=== PATIENT | female | born 1950 | race African-American/Black ===

== ENCOUNTER 2016-07-11 12:40 | Inpatient (IN) | payer MEDICARE, MEDICAID ==
[~2016-07-11] VITALS: Ht 165.1 cm; Wt 87.4 kg
[2016-07-11] MEDS ORDERED: DSS100 PO (13:07)
[2016-07-11] MEDS ORDERED: ASPI81 PO (13:07)
[2016-07-11] MEDS ORDERED: DIPH25 PO (13:07)
[2016-07-11] MEDS ORDERED: ATOR20TA86 PO (13:07)
[2016-07-11] MEDS ORDERED: LEVO100 PO (13:07)
[2016-07-11] MEDS ORDERED: METO50 PO (13:07)
[2016-07-11] MEDS ORDERED: LISI-661 PO (13:07)
[2016-07-11 13:29] LABS: HEMATOCRIT 38.2 % (36-46); HEMOGLOBIN 12.4 g/dL (12.0-16.0); MEAN CORPUSCULAR HEMOGLOBIN 28.9 pg (26.0-34.0); MEAN CORPUSCULAR HGB CONC 32.4 G/dL (31.0-37.0); MEAN CORPUSCULAR VOLUME 89 fL (80-100); RED BLOOD CELL COUNT(AUTO) 4.28 MIL/uL (4.00-5.20); RED CELL DISTRIBUTION WIDTH 14.6 % (11.5-14.5)
[2016-07-11 13:30] LABS: BASOPHILS % (AUTO) 1.4 % (0.0-2.0); EOSINOPHILS % (AUTO) 0.7 % (1.0-6.0); LYMPHOCYTES # (AUTO) 3.2 K/uL (1.0-4.8); LYMPHOCYTES % (AUTO) 44.9 % (22.0-44.0); MONOCYTES # (AUTO) 0.4 K/uL (0.1-1.0); MONOCYTES % (AUTO) 6.2 % (2.0-9.0); NEUTROPHILS # (AUTO) 3.3 K/uL (1.8-7.7); NEUTROPHILS % (AUTO) 46.8 % (40.0-70.0); PLATELET COUNT (AUTO) 330 K/uL (150-450)
[2016-07-11 13:54] LABS: ANION GAP 10 mmol/L (8-16); CALCIUM, TOTAL 10.1 mg/dL (8.8-10.5); CARBON DIOXIDE 29 mmol/L (22-29); CHLORIDE 104 mmol/L (98-107); CREATININE 0.98 mg/dL (0.60-1.30); GLOMERULAR FILTR. RATE CALC > 60 mL/min (>60); POTASSIUM 3.9 mmol/L (3.5-5.1); SODIUM SERUM 143 mmol/L (136-145); UREA NITROGEN, BLOOD 15 mg/dL (7-18)
[2016-07-11 13:59] LABS: ALANINE AMINOTRANSFERASE 28 U/L (12-78); ALBUMIN 3.7 g/dL (3.4-5.0); ASPARTATE AMINOTRANSFERASE 24 U/L (15-37); BILIRUBIN,TOTAL 0.4 mg/dL (0.1-1.0); TOTAL PROTEIN, SERUM 8.5 g/dL (6.4-8.2)
[2016-07-11] MEDS ORDERED: LORazepam 2 MG TABLET PO PRN (16:00)
[2016-07-11] MEDS ORDERED: HALOPERIDOL 5 MG TABLET PO PRN (16:00)
[2016-07-11] MEDS ORDERED: ZOLPIDEM TARTRATE 10 MG TABLET PO PRN (16:00)
[2016-07-11 16:15] VITALS: BP 118/72
[2016-07-11 17:27] LABS: ADD UA MICROSCOPIC NO; APPEARANCE,URINE CLEAR (CLEAR); GLUCOSE, URINE (UA) NEGATIVE (NEGATIVE); KETONES,URINE NEGATIVE (NEGATIVE); LEUKOCYTE ESTERASE ,URINE NEGATIVE (NEGATIVE); OCCULT BLOOD,URINE NEGATIVE (NEGATIVE); PROTEIN,URINE NEGATIVE (NEGATIVE)
[2016-07-11 20:38] VITALS: BP 130/89
[2016-07-11] MEDS: IBUPROFEN 600 MG TABLET PO PRN (20:41)
[2016-07-12] MEDS: LEVOTHYROXINE SODIUM 100 MCG TABLET PO SCH (07:20)
[2016-07-12] MEDS: IBUPROFEN 600 MG TABLET PO PRN (07:22)
[2016-07-12] MEDS: NICOTINE 21 MG/24 HOUR PATCH TD SCH (08:01)
[2016-07-12] MEDS: ATORVASTATIN CALCIUM 20 MG TABLET PO SCH (08:02)
[2016-07-12] MEDS: ASPIRIN 81 MG CHEWABLE TABLET PO SCH (08:02)
[2016-07-12] MEDS: METOPROLOL TARTRATE 50 MG TABLET PO SCH (08:02)
[2016-07-12] MEDS: LISINOPRIL 10 MG TABLET PO SCH (08:02)
[2016-07-12] MEDS: DOCUSATE SODIUM 100 MG CAPSULE PO SCH (08:06)
[2016-07-12 09:36] VITALS: BP 135/89
[2016-07-12] MEDS ORDERED: IBUPROFEN 600 MG TABLET PO PRN (10:45)
[2016-07-12] MEDS ORDERED: CloNIDine HCL 0.1 MG TABLET PO PRN (10:45)
[2016-07-12] MEDS ORDERED: MAGNESIUM HYDROXIDE SUSPENSION 30 ML UDCUP PO PRN (10:45)
[2016-07-12] MEDS ORDERED: ALBUTEROL SULFATE HFA 90 MCG/PUFF 8 GM INHALER IH PRN (10:45)
[2016-07-12] MEDS ORDERED: BENZOCAINE/MENTHOL LOZENGE MM PRN (10:45)
[2016-07-12] MEDS ORDERED: MAG HYDROX/AL HYDROX/SIMETH ES 30 ML SUSPENSION UDCUP PO PRN (10:45)
[2016-07-12] MEDS ORDERED: ONDANSETRON HCL 4 MG TABLET PO PRN (10:45)
[2016-07-12] MEDS ORDERED: LOPERAMIDE HCL 2 MG CAPSULE PO PRN (10:45)
[2016-07-12] MEDS ORDERED: ACETAMINOPHEN 325 MG TABLET PO PRN (10:45)
[2016-07-12] MEDS ORDERED: BACITRACIN 28.4 GM OINTMENT TP PRN (10:45)
[2016-07-12] MEDS ORDERED: PETROLATUM,WHITE 71 GM JELLY TP PRN (10:45)
[2016-07-12] MEDS ORDERED: BENZOCAINE/MENTHOL LOZENGE [8 LOZENGES/PACKET] MM PRN (10:45)
[2016-07-12] MEDS: TraMADol HCL 50 MG TABLET PO PRN ×2 (13:01→19:07)
[2016-07-12] MEDS ORDERED: NICOTINE 21 MG/24 HOUR PATCH TD ONE (13:45)
[2016-07-12 19:05] VITALS: BP 114/68
[2016-07-13] MEDS: TraMADol HCL 50 MG TABLET PO PRN ×2 (01:27→07:48)
[2016-07-13 01:29] VITALS: BP 134/74
[2016-07-13] MEDS: LEVOTHYROXINE SODIUM 100 MCG TABLET PO SCH (06:55)
[2016-07-13 07:48] VITALS: BP 125/78
[2016-07-13] MEDS: ATORVASTATIN CALCIUM 20 MG TABLET PO SCH (08:21)
[2016-07-13] MEDS: ASPIRIN 81 MG CHEWABLE TABLET PO SCH (08:21)
[2016-07-13] MEDS: DOCUSATE SODIUM 100 MG CAPSULE PO SCH (08:21)
[2016-07-13] MEDS: LISINOPRIL 10 MG TABLET PO SCH (08:21)
[2016-07-13] MEDS: METOPROLOL TARTRATE 50 MG TABLET PO SCH (08:22)
[2016-07-13 08:48] VITALS: BP 128/70
[2016-07-13] MEDS: NICOTINE 21 MG/24 HOUR PATCH TD SCH (09:08)
== END 2016-07-13 15:50 | disposition home or self-care (01) | DRG 885 ==
LOC: EMS 12:41 → 3EX 13:35
DX: F29 Unspecified psychosis not due to a substance or known physiological condition (principal); F23 Brief psychotic disorder; F31.9 Bipolar disorder, unspecified; F43.29 Adjustment disorder with other symptoms; F17.210 Nicotine dependence, cigarettes, uncomplicated; E78.5 Hyperlipidemia, unspecified; K59.00 Constipation, unspecified; R51 Headache; G47.00 Insomnia, unspecified; E03.9 Hypothyroidism, unspecified; M48.00 Spinal stenosis, site unspecified; I10 Essential (primary) hypertension; Z79.82 Long term (current) use of aspirin; Z79.899 Other long term (current) drug therapy; I25.2 Old myocardial infarction; Z98.1 Arthrodesis status; Z56.0 Unemployment, unspecified; Z71.6 Tobacco abuse counseling
CPT/HCPCS: 70450; 87081; 99285; G0480; J3535